=== PATIENT | male | born 1955 | race Caucasian/White ===

== ENCOUNTER → 2018-07-06 | Outpatient (CLI) | payer MEDICARE, BC ==
--- NOTE | 2018-07-06 15:00 | RAD ---
EXAM: Right knee, 2 views. HISTORY: Pain. COMPARISON: None. FINDINGS: Frontal and lateral views of the right knee are obtained. There is medial compartment joint space narrowing and tricompartmental spurring. There is a tiny ossific density superior to the patella likely due to a tiny fragmented spur or tiny joint loose body. There is a trace joint effusion. IMPRESSION: 1. Mild medial compartment predominant tricompartmental osteoarthritis of the right knee. 2. Tiny chronic fragmented spur or joint loose body within the suprapatellar space. There is a suspected trace knee effusion. Electronically signed by: Shadia Shah MD (07/06/2018 2:57 PM) [id number]
== END | disposition home or self-care (01) ==
LOC: RAD 07:28
PROVIDERS: ATTEND Family Medicine
DX: M17.11 Unilateral primary osteoarthritis, right knee (principal); M23.41 Loose body in knee, right knee
CPT/HCPCS: 73560